=== PATIENT | male | born 1995 | race Asian ===

== ENCOUNTER 2024-09-22 07:51 | Outpatient (CLI) | payer OTHER | END 2024-09-22 07:52 | disposition home or self-care (01) | LOC: ULT 07:51 | PROVIDERS: ATTEND Internal Medicine Gastroenterology | DX: K21.9 Gastro-esophageal reflux disease without esophagitis (principal); R10.9 Unspecified abdominal pain; R14.0 Abdominal distension (gaseous); Z86.19 Personal history of other infectious and parasitic diseases; K76.9 Liver disease, unspecified | CPT/HCPCS: 76700 ==